=== PATIENT | male | born 1985 | race African-American/Black ===

== ENCOUNTER 2020-01-17 17:46 | Emergency (ER) | payer OTHER ==
[~2020-01-17] VITALS: Ht 180.3 cm; Wt 131.5 kg
[~2020-01-17 17:46] MED LIST: NOHOMEMEDICATIONS
[2020-01-17 19:35] VITALS: BP 167/131
[2020-01-17] MEDS ORDERED: PREDNISONE 10 M10 MG PO (19:54)
[2020-01-17] MEDS ORDERED: VISTARIL 25 MG25 M1 PO (19:54)
[2020-01-17] MEDS ORDERED: PEPCID20 MG PO (19:54)
== END 2020-01-17 20:02 | disposition home or self-care (01) ==
LOC: ER 17:46
DX: L50.9 Urticaria, unspecified (principal)